=== PATIENT | female | born 1930 | race Caucasian/White ===

== ENCOUNTER 2017-01-04 10:25 | Emergency (ER) | payer OTHER, MEDICARE ==
--- NOTE | 2017-01-04 10:42 | EDPHY ---
H & P Time Seen by Provider: 01/04/17 10:32 HPI/ROS: CHIEF COMPLAINT: Shortness of breath HISTORY OF PRESENT ILLNESS: Patient is an 86-year-old female who presents to the emergency department with intermittent shortness of breath. She states this only occurs "once in a while." She feels as though she needs to take a deep breath. She has an intermittent persistent cough that is unchanged from baseline. This is nonproductive. No chest pain. No nausea or vomiting. She has a history of dizziness but is not been complaining of dizziness or lightheadedness recently. No leg pain or swelling. Shortness of breath does not wake her at night. REVIEW OF SYSTEMS: My complete review of systems is negative except as mentioned in the HPI. Past Medical/Surgical History: Includes essential tremor, dizziness, macular degeneration, nausea Past surgical history: Stomach surgery Social history: The patient does not smoke. Smoking Status: Never smoked Physical Exam: Vitals noted GENERAL: Well-appearing, in no acute distress, alert. HEENT: Eyes normal to inspection, normal pharynx, no signs of dehydration. NECK: No thyromegaly, no lymphadenopathy, supple. RESPIRATORY: Clear to auscultation bilaterally, no rales, rhonchi or wheezing. CVS: Regular rate and rhythm, no rubs, murmurs, or gallops. ABDOMEN: Soft, nontender, nondistended, no organomegaly. BACK: Normal to inspection, no CVA tenderness. SKIN: Normal color, no rash, warm, dry. No pallor. EXTREMITIES: No pedal edema, no calf tenderness, no Homans sign or cords, no joint swelling. NEURO/PSYCH: Alert and oriented, normal mood and affect, normal motor sensory exam. No obvious cranial nerve deficit. Constitutional: Initial Vital Signs Temperature (C) 37.3 C 01/04/17 10:57 Heart Rate 55 L 01/04/17 10:57 Respiratory Rate 16 01/04/17 10:57 Blood Pressure 196/81 H 01/04/17 10:57 O2 Sat (%) 93 01/04/17 10:57 O2 Delivery Mode Room Air Allergies/Adverse Reactions: codeine [Codeine] Allergy (Verified 01/04/17 11:00) Home Medications: Medication Instructions Recorded Atenolol [Tenormin 50 mg (*)] 50 mg PO DAILY 04/28/16 Brimonidine/Timolol [Combigan (*)] 1 drops EACHEYE BID 04/28/16 Cholecalciferol Vit D3 [Vitamin D3 2,000 units PO DAILY 04/28/16 2000 units tab (OTC)] Gabapentin [Neurontin 100 MG (*)] 100 mg PO TID 04/28/16 Latanoprost 0.005% [Xalatan 0.005% 1 drops EACHEYE HS 04/28/16 (*)] Levothyroxine [Synthroid 100 mcg 100 mcg PO DAILY06 04/28/16 (*)] Multivitamins [Multivitamin (*)] 1 each PO DAILY 04/28/16 Primidone [Mysoline] 75 mg PO DAILY 04/28/16 Medical Decision Making - Diagnostics Imaging Results: Imaging Impressions Chest X-Ray 01/04/17 10:38 Impression: Stable negative chest. ED Course/Re-evaluation: In the emergency department I discussed possible etiologies with the patient. I discussed the plan. IV was placed. Laboratory studies, EKG and chest x-ray were ordered. I reviewed the patient's previous medical record. Rechecked the patient while here. She was stable during her stay. She had no new complaints shortness of breath. EKG: Sinus rhythm at 53. Left axis deviation. Poor R-wave progression. No ST or T-wave abnormality. Patient's CBC and chemistry were normal. Troponin was negative. BNP was 766 I discussed the results with the patient. On recheck she was doing well. She is given warnings prior to leaving. She will return with worsening symptoms. She will follow up with the primary care physician in 2-3 days. Differential Diagnosis: My differential includes but is not limited to pneumonia, bronchitis, ACS, acute UT, pulmonary disease, mass, malignancy, electrolyte abnormality, sugar abnormality, CHF - Data Points Laboratory Results: Laboratory Results 01/04/17 10:51 01/04/17 10:51 01/04/17 01/04/17 10:51 10:51 WBC 7.24 10^3/uL 10^3/uL (3.80-9.50) RBC 4.57 10^6/uL 10^6/uL (4.18-5.33) Hgb 14.1 g/dL g/dL (12.6-16.3) Hct 41.6 % % (38.0-47.0) MCV 91.0 fL fL (81.5-99.8) MCH 30.9 pg pg (27.9-34.1) MCHC 33.9 g/dL g/dL (32.4-36.7) RDW 13.8 % % (11.5-15.2) Plt Count 241 10^3/uL 10^3/uL (150-400) MPV 9.3 fL fL (8.7-11.7) Neut % (Auto) 68.7 % % (39.3-74.2) Lymph % (Auto) 17.0 % % (15.0-45.0) [place] % (Auto) 9.8 % % (4.5-13.0) Eos % (Auto) 2.8 % % (0.6-7.6) Baso % (Auto) 1.0 % % (0.3-1.7) Nucleat RBC Rel Count 0.0 % % (0.0-0.2) Absolute Neuts (auto) 4.98 10^3/uL 10^3/uL (1.70-6.50) Absolute Lymphs (auto) 1.23 10^3/uL 10^3/uL (1.00-3.00) Absolute Monos (auto) 0.71 10^3/uL 10^3/uL (0.30-0.80) Absolute Eos (auto) 0.20 10^3/uL 10^3/uL (0.03-0.40) Absolute Basos (auto) 0.07 10^3/uL 10^3/uL (0.02-0.10) Absolute Nucleated RBC 0.00 10^3/uL 10^3/uL (0-0.01) Immature Gran % 0.7 % % (0.0-1.1) Immature Gran # 0.05 10^3/uL 10^3/uL (0.00-0.10) Sodium 137 mEq/L mEq/L (134-144) Potassium 4.6 mEq/L mEq/L (3.5-5.2) Chloride 101 mEq/L mEq/L (97-110) Carbon Dioxide 25 mEq/l mEq/l (22-31) Anion Gap 11 mEq/L mEq/L (8-16) BUN 14 mg/dL mg/dL (7-23) Creatinine 0.6 mg/dL mg/dL (0.6-1.0) Estimated GFR > 60 Glucose 97 mg/dL mg/dL (70-100) Calcium 9.7 mg/dL mg/dL (8.5-10.4) Troponin I < 0.012 ng/mL ng/mL (0-0.034) NT-Pro-B Natriuret Pep 766 pg/mL H pg/mL (0-450) Departure - Departure Disposition: Home, Routine, Self-Care Clinical Impression: Shortness of breath Condition: Good Instructions: Dyspnea (ED) Additional Instructions: Return with increasing shortness of breath, chest pain, fever, or any other concerns. Referrals: Diallo Holden MD [Primary Care Provider] - 3-4 days, if not improved
[2017-01-04 10:58] VITALS: RESP 16
[2017-01-04 11:00] LABS: % IMMATURE GRANULYOCYTES 0.7 % (0.0-1.1); ABSOLUTE IMMATURE GRANULOCYTES 0.05 10^3/uL (0.00-0.10); ADD DIFF? NO; ADD MORPH? NO; ADD SCAN? NO; ATYPICAL LYMPHOCYTE FLAG 20 (0-99); FRAGMENT RBC FLAG 0 (0-99); HEMATOCRIT 41.6 % (38.0-47.0); HEMOGLOBIN 14.1 g/dL (12.6-16.3); LEFT SHIFT FLG 0 (0-99); LIPEMIA HEMOLYSIS FLAG 90 (0-99); MEAN CELL HEMOGLOBIN 30.9 pg (27.9-34.1); MEAN CELL HEMOGLOBIN CONCENTR. 33.9 g/dL (32.4-36.7); MEAN PLATELET VOLUME 9.3 fL (8.7-11.7); PLATELET CLUMPS FLAG 10 (0-99); PLATELET COUNT 241 10^3/uL (150-400); RED BLOOD CELL COUNT 4.57 10^6/uL (4.18-5.33); RED CELL DISTRIBUTION WIDTH 13.8 % (11.5-15.2)
[2017-01-04 11:15] LABS: ANION GAP 11 mEq/L (8-16); CALCIUM 9.7 mg/dL (8.5-10.4); CARBON DIOXIDE 25 mEq/l (22-31); CHLORIDE 101 mEq/L (97-110); CREATININE 0.6 mg/dL (0.6-1.0); GLOMERULAR FILTRATION RATE > 60; GLUCOSE 97 mg/dL (70-100); POTASSIUM 4.6 mEq/L (3.5-5.2); SODIUM 137 mEq/L (134-144)
[2017-01-04 11:29] LABS: TROPONIN I < 0.012 ng/mL (0-0.034)
--- NOTE | 2017-01-04 11:55 | CPEKG ---
Heart Rate: 53 RR Interval: 1132 P-R Interval: 200 QRSD Interval: 90 QT Interval: 432 QTC Interval: 406 P [place]: 47 QRS [place]: -31 T Wave [place]: 31 EKG Severity - BORDERLINE ECG - EKG Impression: SINUS RHYTHM EKG Impression: LEFT AXIS DEVIATION EKG Impression: CONSIDER ANTERIOR INFARCT EKG Impression: Possible left atrial abnormality EKG Impression: No significant change from April 28, 2016 Electronically Signed By: Oseas Rubin 06-Jan-2017 10:53:37
[2017-01-04 12:27] VITALS: BP 188/82; PULSE 65; TEMP 98.6; O2SAT 95
== END 2017-01-04 12:26 | disposition home or self-care (01) ==
LOC: CED 10:25
DX: R06.02 Shortness of breath (principal)
CPT/HCPCS: 71020-PO; 80048-PO; 83880-PO; 84484-PO; 85025-PO

== ENCOUNTER → 2017-04-21 | Outpatient (CLI) | payer OTHER, MEDICARE | LOC: BMCIMAGING 13:11 | PROVIDERS: ATTEND Internal Medicine | DX: Z12.31 Encounter for screening mammogram for malignant neoplasm of breast (principal) | CPT/HCPCS: G0202 ==